=== PATIENT | female | born 1955 | race Caucasian/White ===

== ENCOUNTER 2020-06-02 11:27 | Emergency (ER) | payer MEDICARE ==
[~2020-06-02 11:27] MED LIST: ASPIR-TRIN325 MG PO; KLONOPIN TAB 00.5 MG PO; LEXAPRO20 MG PO; LOVASTATIN20 MG PO; METFORMIN HCL500 MG PO; NIACIN500 M1 PO; NYAMYC60 GM TP
[2020-06-02] MEDS ORDERED: NAPROSYN EC 37375 MG PO (17:07)
== END 2020-06-02 14:50 | disposition left against medical advice (07) ==
LOC: ER1 11:27
DX: Z53.21 Procedure and treatment not carried out due to patient leaving prior to being seen by health care provider (principal)

== ENCOUNTER 2020-06-02 15:05 | Emergency (ER) | payer MEDICARE ==
[2020-06-02] MEDS ORDERED: NAPROSYN EC 37375 MG PO (17:07)
== END 2020-06-02 17:12 | disposition home or self-care (01) ==
LOC: ER1 15:05
DX: M25.561 Pain in right knee (principal)
CPT/HCPCS: 73562; 99283